=== PATIENT | male | born 1955 | race Caucasian/White ===

== ENCOUNTER 2018-12-13 12:03 | Inpatient (IN) | payer MEDICARE ==
[~2018-12-13] VITALS: Ht 177.8 cm; Wt 90.9 kg
[~2018-12-13 12:03] MED LIST: ALEVE220 MG PO; ASPIRIN325 MG PO; DILAUDID2 MG PO; GLUCOPHAGE500 MG PO; HYDROCODONE-APA1 TAB PO; LISINOPRIL10 MG PO; PRAVACHOL80 MG PO
--- NOTE | 2018-12-13 14:30 | NUR ---
PT AMBULATES TO FLOOR ESCORTED BY CT STAFF AND FAMILY. WRITTEN ORDERS PLACED. PT IS AAO X 4. PT DENIES PRESENCE OF SOB/DYSPNEA AT THIS TIME. PT DENIES PRESENCE OF PAIN/N/V. PIV TO RIGHT FA IS SL. O2 VIA ROOM AIR SAT @ 96%. VSS SEE ADMISSION VITALS. PT DENEIS FURTHER NEEDS.
--- NOTE | 2018-12-13 14:39 | NUR ---
DR ÁLVAREZ ON PHONE AND REQUESTS LAB TO BE DONE STAT. LAB CALLED AND NOTIFIED OF STAT LAB ORDERS.
[2018-12-13] MEDS ORDERED: CIPRO500 MG PO (14:44)
[2018-12-13] MEDS ORDERED: ALEVE220 MG PO (14:46)
[2018-12-13 15:00] VITALS: BP 139/76; BMI 28.7
--- NOTE | 2018-12-13 15:16 | NUR ---
ASSISTANT MEDIA PLANNER RAJWINDER NOTIFIED OF NEED FOR TELEMETRY. RAJWINDER CORRUGATOR HELPER TO NOTIFY NURSE WHEN MONITOR IS READY FOR PT USE.
--- NOTE | 2018-12-13 15:19 | NUR ---
PT NOTIFIED OF NEED FOR URINE SAMPLE. PT VERBALIZES UNDERSTANDING.
[2018-12-13 16:04] LABS: BASOPHILS 0.3 % (0-2); EOSINOPHILS 3.2 % (0-7); HEMATOCRIT 42.2 % (42.0-54.0); HEMOGLOBIN 14.4 g/dL (13.5-17.5); IMMATURE GRANULOCYTES 0.3 % (0-5); LYMPHOCYTES 14.3 % (15-50); MCH 30.3 pg (26.0-34.0); MCHC 34.1 g/dL (31.0-37.0); MCV 88.8 fL (80.0-100.0); MEAN PLATELET VOLUME 9.2 fL (7.4-10.4); MONOCYTES 10.9 % (2-11); PLATELET COUNT 133 10x3/uL (130-400); RBC 4.75 10x6/uL (4.20-6.10); WBC 9.2 10x3/uL (4.8-10.8)
[2018-12-13 16:27] LABS: APPEARANCE CLEAR (CLEAR); BILIRUBIN NEGATIVE (NEGATIVE); COLOR YELLOW (YELLOW); GLUCOSE NEGATIVE (NEGATIVE); KETONE SMALL mg/dL (NEGATIVE); NITRITE NEGATIVE (NEGATIVE); PROTEIN TRACE mg/dL (NEGATIVE); UROBILINOGEN NORMAL (NORMAL)
[2018-12-13 16:28] LABS: BACTERIA FEW /hpf (NEGATIVE); RED CELLS - URINE 0-5 /hpf (0-5); WHITE CELLS - URINE OCC /hpf (NEGATIVE)
[2018-12-13 16:45] LABS: ALBUMIN 3.6 g/dL (3.4-5.0); ALKALINE PHOSPHATASE 74 U/L (46-116); ALT (SGPT) 33 U/L (10-68); CALC OSMOLALITY 281 mosm/kg (275-300); CALCIUM 8.6 mg/dL (8.5-10.1); CHLORIDE - SERUM 102 mmol/L (98-107); CREATININE - SERUM 1.2 mg/dL (0.6-1.3); GLUCOSE 111 mg/dL (74-106); POTASSIUM - SERUM 4.3 mmol/L (3.5-5.1); PRO BNP 98 pg/mL (0-125); SODIUM 139 mmol/L (136-145); UREA NITROGEN 22 mg/dL (7-18); eGFR NON AFRICAN AMERICAN 64 mL/min (90-120)
[2018-12-13 16:47] LABS: TROPONIN-I < 0.017 ng/mL (0.000-0.060)
[2018-12-13 17:13] LABS: APTT 27.4 SECONDS (22.8-39.4); INR 1.11 (0.85-1.17); PROTIME 13.8 SECONDS (11.6-15.0)
[2018-12-13 20:00] VITALS: BP 117/64
--- NOTE | 2018-12-13 20:00 | NUR ---
ALERT SITTING UP IN BED VISITING WITH FAMILY, DENIES PAIN OR NEEDS AT THIS TIME, RESP UNLABORED, SEE SHIFT ASSESSMENT, CALL LIGHT IN REACH
[2018-12-14] VITALS (9 sets, daily range): BP systolic 120–132; BP diastolic 51–71
--- NOTE | 2018-12-14 09:00 | NUR ---
ALERT AND ORIENTED X4. LUNGS DIMINISHED TO LLQ ANTERIOR WITH DYSPNEA ON EXERTION. TELEMETRY INTACT.PEDAL PULSES NOTED W/O ANY EDEMA. ENCOURAGED TO USE CALL LIGHT FOR ASSIST.ENCOURAGED TO USE CALL LIGHT FOR ASSIST.
--- NOTE | 2018-12-14 13:29 | EC ---
PATIENT:PATRICE FRANK DATE OF SERVICE: 12/13/18 SEX: M MEDICAL RECORD: [id number] DATE OF : [birth year] LOCATION:[facility] AGE OF PATIENT: 63 ADMISSION DATE: 12/13/18 REFERRING PHYSICIAN: INTERPRETING PHYSICIAN: YVONNE HARKINS MD ECHOCARDIOGRAM REPORT ECHO CHARGES 4 ECHO COMPLETE Date: 12/13/18 CLINICAL DIAGNOSIS: BILATERAL PE'S, ASSESS FOR CLOTS, EF ECHOCARDIOGRAPHIC MEASUREMENTS (adult normal given) AC root (d.<3.7cm) 3.0 cm LV Septum d (<1.2 cm> 1.5 cm Valve Excursion 1.5 cm LV Septum (systole) 1.6 cm Left Atria (s.<4.0cm> 3.5 cm LVPW d(<1.2cm) 1.4 cm RV (d.<2.3cm) 3.6 cm LVPW (sytole) 1.9 cm LV diastole(<5.6CM) 5.0 cm MV E-F(>70mm/sec) cm LV systole 3.6 cm LVOT Diameter 1.8 cm MV exc.(>10mm) 1.8 cm Est.ejection fraction (50-75%) % DOPPLER: LVIT cm/sec A 84.0 cm/sec E 66.0 cm/sec LA cm/sec RVSP 19 mmHg LVOT 120 cm/sec AOP1/2T m/s Asc. Ao 156 cm/sec RVOT 75 cm/sec RA cm/sec PA 153 cm/sec AV Gradient Peak 9.73 mmHg AV Mean 5.51 mmHg AV Area 1.7 cm MV Gradient Peak 2.87 mmHg MV Mean 1.20 mmHg MV Area cm COMMENTS: Airline Pilot/First Officer: 2 ESTIVEN ORNELAS Linux System Administrator: 1 Dr. Harkins TAPE# PACS Pericardial Effusion N DATE OF SERVICE: PROCEDURE: Echocardiogram. FINDINGS: 1. Left ventricular chamber size is within normal limits. Left ventricular systolic function is normal at 55% to 60%. 2. Left atrium is within normal limits at 3.5 cm. Right atrium and right ventricular chamber sizes are as well within normal limits. 3. Valvular structures have normal structure and motion. ECHOCARDIOGRAM REPORT [id number] PATRICE FRANK 4. Doppler interrogation reveals no significant valvular insufficiency or stenosis. 5. No evidence of pericardial effusion or left ventricular thrombus. 6. No cardiac source of emboli. TRANSINT:[id number] Voice Confirmation ID: [id number] DOCUMENT ID: [id number] YVONNE HARKINS MD at 1329 CC: [id number] DICTATION DATE: 12/14/18 1103 REGIONAL DIRECTOR OF FINANCE: 12/14/18 1113 ADM IN [place] [id number] [place] [id number]
--- NOTE | 2018-12-14 19:55 | NUR ---
PT RESTING IN BED. ALERT AND ORIENTED. NO SIGNS OF DISTRESS. BREATHING EVEN AND UNLABORED. PT STATES NO PROBLEMS AT THIS TIME. IV SITE RT FA DRESSING CLEAN DRY AND INTACT. NO SIGNS OF INFECTION. LUNG SOUNDS CLEAR. BOWEL SOUNDS ACTIVE. TELE MONITOR ON 62 NORMAL SINUS. NO LOWER LEG SWELLING PRESENT. SKIN CLEAN DRY AND INTACT. WILL CONTINUE PLAN OF CARE. CALL LIGHT IN REACH. BED LOWERED AND LOCKED. FAMILY AT BEDSIDE.
--- NOTE | 2018-12-14 22:20 | NUR ---
PT COMPLAINNING OF CHEST PAIN 10 OUT OF 10. RAPID CALLED.
[2018-12-14 22:24] LABS: BASOPHILS 0.3 % (0-2); EOSINOPHILS 3.9 % (0-7); HEMATOCRIT 43.6 % (42.0-54.0); HEMOGLOBIN 14.9 g/dL (13.5-17.5); IMMATURE GRANULOCYTES 0.4 % (0-5); LYMPHOCYTES 18.9 % (15-50); MCH 29.9 pg (26.0-34.0); MCHC 34.2 g/dL (31.0-37.0); MCV 87.6 fL (80.0-100.0); MEAN PLATELET VOLUME 9.3 fL (7.4-10.4); MONOCYTES 10.8 % (2-11); NEUTROPHILS 65.7 % (40-80); RBC 4.98 10x6/uL (4.20-6.10); RDW 11.9 % (11.5-14.5); WBC 9.1 10x3/uL (4.8-10.8)
[2018-12-14 22:25] LABS: PLATELET COUNT 193 10x3/uL (130-400)
[2018-12-14 22:34] LABS: CALC OSMOLALITY 280 mosm/kg (275-300); CALCIUM 8.6 mg/dL (8.5-10.1); CARBON DIOXIDE 29.4 mmol/L (21.0-32.0); CHLORIDE - SERUM 102 mmol/L (98-107); CREATININE - SERUM 1.2 mg/dL (0.6-1.3); GLUCOSE 132 mg/dL (74-106); POTASSIUM - SERUM 4.1 mmol/L (3.5-5.1); SODIUM 137 mmol/L (136-145); UREA NITROGEN 26 mg/dL (7-18); eGFR NON AFRICAN AMERICAN 64 mL/min (90-120)
[2018-12-14 22:49] LABS: ALBUMIN 3.1 g/dL (3.4-5.0); ALKALINE PHOSPHATASE 71 U/L (46-116); ALT (SGPT) 36 U/L (10-68); BILIRUBIN - TOTAL 0.43 mg/dL (0.2-1.3); CKMB 0.3 U/L (0.0-3.6); CREATINE KINASE 40 UL (21-232); PROTEIN - SERUM 7.2 g/dL (6.4-8.2)
[2018-12-14 22:50] LABS: TROPONIN-I < 0.017 ng/mL (0.000-0.060)
--- NOTE | 2018-12-14 23:00 | NUR ---
PT STABLE. VITALS STABLE. CHEST PAIN HAS WHEN DOWN TO 3 OUT OF 10. EKG NORMAL. NO NEW ORDERS AT THIS TIME. WILL MONITOR CLOSELY. FAMILY AT BEDSIDE.
[2018-12-15] VITALS (8 sets, daily range): BP systolic 123–163; BP diastolic 64–74; Ht 177.8 cm; Wt 90.9 kg
--- NOTE | 2018-12-15 01:20 | NUR ---
I have reviewed this patient and I concur with the Shift Assessment completed by the Licensed Practical Nurse today this shift.
--- NOTE | 2018-12-15 09:35 | NUR ---
ALERT AND ORIENTED X4 WITH BREAST SOUNDS SLIGHTLY DIMINISHED TO BLQ ANTERIOR. NO PERIPHERAL EDEMA NOTED WITH CAP REFILL<3 SEC. DENEIS ANY CHEST PAIN OR DISCOMFORT AT THIS TIME. TELEMETRY INTACT AND ENCOURAGED TO USE CALL LIGHT FOR ASSISTANCE. FAMILY PRESENT AT THIS TIME.
[2018-12-15 11:09] LABS: ANTITHROMBIN III ACTIVITY 88 % (75-135); ANTITHROMBIN III ANTIGEN 82 % (72-124)
--- NOTE | 2018-12-15 14:28 | NUR ---
DR. GRIMALDO HERE WITH PATIENT HAVING RIGORS WITH TEMP 98.6 B/P 164/84 88 20. TYLENOL 650MG GIVEN PO GIVEN FOR RIGOR. NO OTHER CHANGES IN CONDITION WITH ORDERS NOTED.
--- NOTE | 2018-12-15 18:57 | NUR ---
PT HAD LARGE BM AND REFUSED SUPPOSITORY.
--- NOTE | 2018-12-15 19:15 | NUR ---
PATIENT ALERT AND ORIENTED WITH FAMILY AT BEDSIDE. AUSCULTATED BILATERAL UPPER AND LOWER LOBES. DIMINSHED ALL OVER WITH LIGHT CRACKLES NOTED IN THE UPPER RIGHT LOBE. PATIENT STATES HE IS NOT SHORT OR BREATH BUT THAT HE DOES FEEL RESISTANCE WHEN HE TAKES DEEP BREATHS. SPOKE WITH PATIENT ABOUT DR. GRIMALDO STATING NOT TO USE INCENTIVE SPIROMETER IN FEAR THAT IT MAY "BREAK SOMETHING LOOSE" INCENTIVE SPIROMETER REMOVED FROM BEDSIDE. PATIENT VERBALIZES UNDERSTANDING. PROVIDED EDUCATION ON LOVENOX TREATMENTS. PATIENT REPORTS SMALL "TENDER" AREA TO THE LEFT ANKLE. SLIGHT REDNESS NOTED AROUND AREA BUT NO SWELLING NOTED. PATIENT WEARING O2 AT 2 L VIA NASAL CANNULA. IV TO THE RIGHT FOREARM THAT IS SALINE LOCKED AT THIS TIME. DENIES PAIN. DENIES FURTHER DISCOMFORT. HAS CALL LIGHT IN REACH. BED IS LOCKED AND LOWERED TO LOWEST POSITION. CPOC.
--- NOTE | 2018-12-15 20:25 | NUR ---
FSBS 190. PATIENT STATES HE DOES NOT TAKE INSULIN AND NEVER HAS. STATES THEY JUST ATE PIZZA AND HE HAS DRANK JUICE TODAY TO MAKE BOWELS MOVE. PATIENT STATES HE IS UNCOMFORTABLE WITH INSULIN ADMINISTRATION. REFUSES INSULIN AT THIS TIME.
--- NOTE | 2018-12-15 21:00 | NUR ---
DAUGHTER IN ROOM AND CONVINCED PATIENT TO TAKE INSULIN. ADMINISTERED 4 UNITS PER ORDER. EDUCATED ON S/SX OF HYPOGLYCEMIA.
--- NOTE | 2018-12-15 22:35 | NUR ---
REASSESED FSBS 106
[2018-12-16 00:21] VITALS: BP 139/77
--- NOTE | 2018-12-16 01:16 | NUR ---
I have reviewed this patient and I concur with the Shift Assessment completed by the Licensed Practical Nurse today this shift.
[2018-12-16 04:45] VITALS: BP 136/73
[2018-12-16 06:35] LABS: CALC OSMOLALITY 280 mosm/kg (275-300); CARBON DIOXIDE 26.9 mmol/L (21.0-32.0); CHLORIDE - SERUM 102 mmol/L (98-107); GLUCOSE 95 mg/dL (74-106); POTASSIUM - SERUM 4.5 mmol/L (3.5-5.1); SODIUM 139 mmol/L (136-145); UREA NITROGEN 21 mg/dL (7-18); eGFR NON AFRICAN AMERICAN 80 mL/min (90-120)
[2018-12-16 06:42] LABS: HEMATOCRIT 44.4 % (42.0-54.0); MCH 29.9 pg (26.0-34.0); MCHC 33.8 g/dL (31.0-37.0); MCV 88.4 fL (80.0-100.0); MEAN PLATELET VOLUME 10.1 fL (7.4-10.4); PLATELET COUNT 225 10x3/uL (130-400); RBC 5.02 10x6/uL (4.20-6.10); WBC 6.9 10x3/uL (4.8-10.8)
--- NOTE | 2018-12-16 07:41 | NUR ---
ALERT AND ORIENTED. LUNGS DIMINISHED BILATERALLY THROUGHOUT. HEART SOUNDS S1 AND S2 HEARD IN ALL J[place]. TELEMETRY IN PLACE AT 74 SR. IV TO RFA PATENT WITHOUT REDNESS. SKIN INTACT WITHOUT REDNESS. O2 IN PLACE AT 2L. DENIES NEEDS. DENIES PAIN. BED LOW. CALL BRODY AND PERSONAL ITEMS IN REACH. WILL CONTINUE TO MONITOR.
[2018-12-16 08:15] LABS: BASOPHILS 2 % (0-2); EOSINOPHILS 12 % (0-7); LYMPHOCYTES 38 % (15-50); MONOCYTES 6 % (2-11); NEUTROPHILS 42 % (40-80); PLATELET ESTIMATE NORMAL
--- NOTE | 2018-12-16 08:17 | NUR ---
RASH NOTED TO BACK. WILL SPEAK WITH INTEGRATED CAMPAIGN MANAGER ABOUT.
[2018-12-16 08:25] VITALS: BP 134/69
--- NOTE | 2018-12-16 08:25 | NUR ---
DR GLOVER, TUBE BENDING MACHINE OPERATOR FOR DR ÁLVAREZ, PAGED.
--- NOTE | 2018-12-16 08:34 | NUR ---
SPOKE WITH DR GLOVER WHO STATES ORDER TRIAMCINALONE 0.1% CREAM BID FOR RASH TO BACK.
--- NOTE | 2018-12-16 09:42 | NUR ---
THIN LAYER OF KENALOG CREAM APPLIED TO ENTIRE BACK PER ORDER.
--- NOTE | 2018-12-16 09:48 | NUR ---
TELEMETRY SHOWS SINUS LESLEY 59.
--- NOTE | 2018-12-16 12:37 | NUR ---
SPOKE WITH DR GLOEVR WHO STATES OK FOR PT TO DC TODAY IF OK WITH PULMONARY. STATES LET KNOW AFTER PULMONARY MAKES ROUNDS.
[2018-12-16 12:38] VITALS: BP 117/70
--- NOTE | 2018-12-16 12:41 | NUR ---
RESTING IN BED. DENIES NEEDS. FAMILY AT BEDSIDE. WILL CONTINUE TO MONITOR.
--- NOTE | 2018-12-16 14:01 | NUR ---
SPOKE WITH DR MUÑIZ PER DR GLOVER'S REQUEST TO LET DR MUÑIZ KNOW THAT DR GLOVER IS OK WITH PATIENT DC TODAY IF DR MUÑIZ IS OK WITH DISCHARGE.
--- NOTE | 2018-12-16 14:07 | NUR ---
DR MUÑIZ SPEAKING WITH PATIENT AND FAMILY. STATES PATIENT SHOULD STAY ONE MORE NIGHT TO GET LOVENOX TODAY 12/16 AND START ELIQUIS TOMORROW PRIOR TO DISCHARGE. NOTIFIED PATIENT THAT WOULD BE ON BLOOD THINNER FOR AT LEAST SIX MONTHS. WILL NOTIFY DR GLOVER.
--- NOTE | 2018-12-16 14:12 | NUR ---
DR BELEN FAITH.
--- NOTE | 2018-12-16 14:20 | NUR ---
SPOKE WITH DR GLOVER ABOUT DR MUÑIZ'S PLAN. STATES OK TO DISCHARGE TOMORROW.
--- NOTE | 2018-12-16 14:25 | NUR ---
ADDITION TO PREVIOUS NOTES. OKAY TO GET UP TO GO TO BATHROOM PER DR MUÑIZ. NO INCENTIVE SPIROMETER PER DR MUÑIZ. PATIENT EDUCATION PROVIDED BY DR MUÑIZ TO "TAKE A DEEP BREATH ONCE IN A WHILE."
--- NOTE | 2018-12-16 15:33 | NUR ---
RESTING IN BED. DENIES NEEDS. WILL CONTINUE TO MONITOR.
[2018-12-16 16:09] VITALS: BP 128/72
--- NOTE | 2018-12-16 16:52 | NUR ---
RESTING IN BED. FAMILY AT BEDSIDE. DENIES NEEDS. CALL BRODY AND PERSONAL ITEMS IN REACH. WILL CONTINUE TO MONITOR.
--- NOTE | 2018-12-16 19:00 | NUR ---
PATIENT ALERT AND ORIENTED. AT BEDSIDE. PATIENT IN BED WITH HOB ELEVATED TO A 45 DEGREE ANGLE. PATIENT WEARING NASAL CANNULA WITH O2 @ 2L. RIGHT FORARM IV IS PATENT AND SALINE LOCKED AT THIS TIME. DENIES PAIN AT THIS TIME. RESPIRATORY THERAPIST IN ROOM AND DISCUSSED WALK TEST THAT WOULD OCCUR EITHER TONIGHT OR TOMORROW. ANSWERED PATIENT QUESTIONS. WEARING TELE MONITOR RUNNING 60 SINUS WITH PAC'S AT TIMES. STATES THAT HE IS STILL SHALLOW BREATHING. RESISTANCE TAKING DEEP BREATHS. CALL LIGHT IN REACH. CPOC.
[2018-12-16 20:00] VITALS: BP 133/71
[2018-12-17] VITALS: BP 135/69
--- NOTE | 2018-12-17 00:40 | NUR ---
PATIENT RESTING WITH NO DISTRESS NOTED AT THIS TIME. AND DAUGHTER IN ROOM SLEEPING. CPOC.
--- NOTE | 2018-12-17 02:34 | NUR ---
I have reviewed this patient and I concur with the Shift Assessment completed by the Licensed Practical Nurse today this shift.
[2018-12-17 04:00] VITALS: BP 118/71
--- NOTE | 2018-12-17 06:38 | NUR ---
PROVIDED TEACHING TO PATIENT ABOUT PE AND ELIQUIS. PT INSTRUCTIONS PRINTED
[2018-12-17] MEDS ORDERED: ELIQUIS5 MG PO (07:54)
[2018-12-17 08:36] VITALS: BP 121/68
--- NOTE | 2018-12-17 09:14 | NUR ---
PT UP IN ROOM FAMILY ASKED ABOUT WALK TEST, NO S/S OF DISTRESS, ADVISED WALK TEST SHOULD BE DONE BEFORE DC. CONTINUE WITH PLAN OF CARE
--- NOTE | 2018-12-17 09:25 | MORECARE ---
CASE MANAGEMENT DISCHARGE SUMMARY PATIENT: PATRICE FRANK UNIT: [id number] ADM DATE: 12/13/18 AGE: 63 : 53 SEX: M ROOM/BED: D.2225 AUTHOR: CINDY SALCEDO PHYSICIAN: REFERRING PHYSICIAN: ANH MURPHY MD DATE OF SERVICE: 12/17/18 Discharge Plan Patient Name: PATRICE FRANK Facility: [facility]:[place] : 1955 Planned Disposition: Home Anticipated Discharge Date: 12/17/18 Discharge Date: Expected LOS: 4 Initial Reviewer: [email or web address] Initial Review Date: 12/17/2018 Generated: 12/17/18 10:25 am Comments DCP- Discharge Planning Updated by [email or web address]: Gwendolyn Vieira on 12/17/18 8:[address] Patient Name: PATRICE FRANK Admission Status: Elective Accout number: [id number] Admission Date: 12-13-2018 : 1955 Admission Diagnosis: Attending: ANH MURPHY Current LOS: 4 Anticipated DC Date: 12-17-2018 Planned Disposition: Home Primary Insurance: MEDICARE A & B Discharge Planning Comments: CM met with patient to complete initial dc planning assessment. CM educated patient on the CM role and verbal consent given by patient to complete assessment. Patient lives at home with his . At discharge patient plans to return and feels this is a safe discharge. CM discussed availability of home health, rehab services, and medical equipment. Patient denied known discharge needs at this time. I have called RT for a walk test to check for home oxygen needs. CM will continue to follow and will assist as needed with dc plans/needs. Sports Coordinator: Gwendolyn Vieira DCPIA - Discharge Planning Initial Assessment Updated by [email or web address]: Gwendolyn Vieira on 12/17/18 9:22 am * Is the patient Alert and Oriented? Yes * How many steps to enter\exit or inside your home? 0/0 * PCP Dr. Murphy * [facility] [address] * Preadmission Environment Home with Family * ADLs Independent * Equipment None * List name and contact numbers for known caregivers / representatives who currently or will assist patient after discharge: Dalila Frank - - H [phone] - [phone] * Verbal permission to speak to the caregivers and representatives has been obtained from the patient. Yes * Community resources currently utilized None * Additional services required to return to the preadmission environment? No * Can the patient safely return to the preadmission environment? Yes * Has this patient been hospitalized within the prior 30 days at any hospital? No Coverage Notice Reviewer: [id number] Nadira Vieira Notice Issued Date-Time: 12/17/2018 9:12 Notice Type: IM Discharge Notice Notice Delivered To: Patient Relationship to Patient: Self Siding Applicator Name: Delivery Method: HAND - Hand Delivered Litzy Days: Prior Verbal Notification: Recipient Understood Notice: Yes Recipient Signature: Yes Med Rec Note Co-signed by Attending: Coverage Notice Comment: IMM explained, signed, given, copy placed in MR Patient Name: PATRICE FRANK Page [phone] at 0925 All edits/amendments must be made on the electronic document DICTATION DATE: 12/17/18924 RESIDENT DOCTOR: RIVERA 12/17/18924 RPT#: [id number] DC DATE: STATUS: ADM IN [facility] [address] [place] [address] END OF REPORT
--- NOTE | 2018-12-17 10:47 | NUR ---
UP IN CHAIR. PT IS WITHOUT DISTRESS.FAMILY AT BEDSIDE.CALL LIGHT IN REACH
--- NOTE | 2018-12-17 11:49 | MORECARE ---
CASE MANAGEMENT DISCHARGE SUMMARY PATIENT: PATRICE FRANK UNIT: [id number] ADM DATE: 12/13/18 AGE: 63 : 53 SEX: M ROOM/BED: D.2225 AUTHOR: CINDY SALCEDO PHYSICIAN: REFERRING PHYSICIAN: ANH MURPHY MD DATE OF SERVICE: 12/17/18 Discharge Plan Patient Name: PATRICE FRANK Facility: [facility]:[place] : 1955 Planned Disposition: Home Anticipated Discharge Date: 12/17/18 Discharge Date: Expected LOS: 4 Initial Reviewer: [email or web address] Initial Review Date: 12/17/2018 Generated: 12/17/18 12:49 pm Comments DCP- Discharge Planning Updated by [email or web address]: Gwendolyn Vieira on 12/17/18 8:[address] Patient Name: PATRICE FRANK Admission Status: Elective Accout number: [id number] Admission Date: 12-13-2018 : 1955 Admission Diagnosis: Attending: ANH MURPHY Current LOS: 4 Anticipated DC Date: 12-17-2018 Planned Disposition: Home Primary Insurance: MEDICARE A & B Discharge Planning Comments: CM met with patient to complete initial dc planning assessment. CM educated patient on the CM role and verbal consent given by patient to complete assessment. Patient lives at home with his . At discharge patient plans to return and feels this is a safe discharge. CM discussed availability of home health, rehab services, and medical equipment. Patient denied known discharge needs at this time. I have called RT for a walk test to check for home oxygen needs. CM will continue to follow and will assist as needed with dc plans/needs. Director Report: Gwendolyn Vieira DCPIA - Discharge Planning Initial Assessment Updated by [email or web address]: Gwendolyn Vieira on 12/17/18 9:22 am * Is the patient Alert and Oriented? Yes * How many steps to enter\exit or inside your home? 0/0 * PCP Dr. Murphy * [facility] [address] * Preadmission Environment Home with Family * ADLs Independent * Equipment None * List name and contact numbers for known caregivers / representatives who currently or will assist patient after discharge: Dalila Frank - - H [phone] - [phone] * Verbal permission to speak to the caregivers and representatives has been obtained from the patient. Yes * Community resources currently utilized None * Additional services required to return to the preadmission environment? No * Can the patient safely return to the preadmission environment? Yes * Has this patient been hospitalized within the prior 30 days at any hospital? No External Providers External Provider: Macy Simon Contact Date: Service Request Date: Service Type: Resolution: Reviewer: Comments: Coverage Notice Reviewer: [email or web address] Nadira Vieira Notice Issued Date-Time: 12/17/2018 9:12 Notice Type: IM Discharge Notice Notice Delivered To: Patient Relationship to Patient: Self Raw Shellfish Preparer Name: Delivery Method: HAND - Hand Delivered Litzy Days: Prior Verbal Notification: Recipient Understood Notice: Yes Recipient Signature: Yes Med Rec Note Co-signed by Attending: Coverage Notice Comment: IMM explained, signed, given, copy placed in MR Last DP export: 12/17/18 8:25 Patient Name: PATRICE FRANK Page [phone] at 1149 All edits/amendments must be made on the electronic document DICTATION DATE: 12/17/18 1149 CHIEF QUALITY OFFICER: RIVERA 12/17/18 1149 RPT#: [id number] DC DATE: STATUS: ADM IN [facility] [address] [place] [address] END OF REPORT
[2018-12-17 12:48] VITALS: BP 123/69
--- NOTE | 2018-12-17 13:16 | MORECARE ---
CASE MANAGEMENT DISCHARGE SUMMARY PATIENT: PATRICE FRANK UNIT: [id number] ADM DATE: 12/13/18 AGE: 63 : 53 SEX: M ROOM/BED: D.2225 AUTHOR: CINDY SALCEDO PHYSICIAN: REFERRING PHYSICIAN: ANH MURPHY MD DATE OF SERVICE: 12/17/18 Discharge Plan Patient Name: PATRICE FRANK Facility: [facility]:[place] : 1955 Planned Disposition: Home Anticipated Discharge Date: 12/17/18 Discharge Date: Expected LOS: 4 Initial Reviewer: [email or web address] Initial Review Date: 12/17/2018 Generated: 12/17/18 2:16 pm Comments DCP- Discharge Planning Updated by [id number]: Gwendolyn Vieira on 12/17/18 12:[address] Received a call from Annika with [facility]. Patient does not have a chronic qualifying diagnosis for oxygen. I spoke to both Dr. Prasad and Dr. Rodriguez and informed them of the oxygen saturation of 86% with exertion. Dr. Prasad and Dr. Rodriguez state ok to discharge. They both state that he does not have a chronic condition for oxygen. Dr. Prasad offers for patient to discharge and not have do anything to cause exertion. Patient may also private pay for oxygen which is 172 dollars a month. Patient and family present with this and they agree to private pay for oxygen. I did notify Annika that he will private pay. [facility] will bring a portable tank. Home today with oxygen from [facility]. DCP- Discharge Planning Updated by [id number]: Gwendolyn Vieira on 12/17/18 10:[address] Walk test qualifies patient for home oxygen with exertion. I faxed clinical to [facility] and spoke with Mike. I also spoke with Dr. Rodriguez's nurse and informed her that I would need to set up home oxygen if he qualifies, she informed Dr. Rodriguez. CM will continue to follow and assist with discharge planning/needs. DCP- Discharge Planning Updated by [id number]: Gwendolyn Vieira on 12/17/18 8:[address] Patient Name: PATRICE FRANK Admission Status: Elective Accout number: [id number] Admission Date: 12-13-2018 : 1955 Admission Diagnosis: Attending: ANH MURPHY Current LOS: 4 Anticipated DC Date: 12-17-2018 Planned Disposition: Home Primary Insurance: MEDICARE A & B Discharge Planning Comments: CM met with patient to complete initial dc planning assessment. CM educated patient on the CM role and verbal consent given by patient to complete assessment. Patient lives at home with his . At discharge patient plans to return and feels this is a safe discharge. CM discussed availability of home health, rehab services, and medical equipment. Patient denied known discharge needs at this time. I have called RT for a walk test to check for home oxygen needs. CM will continue to follow and will assist as needed with dc plans/needs. Specimen Technician: Gwendolyn Vieira DCPIA - Discharge Planning Initial Assessment Updated by [email or web address]: Gwendolyn Vieira on 12/17/18 9:22 am * Is the patient Alert and Oriented? Yes * How many steps to enter\exit or inside your home? 0/0 * PCP Dr. Murphy * Pharmacy [facility] * Preadmission Environment Home with Family * ADLs Independent * Equipment None * List name and contact numbers for known caregivers / representatives who currently or will assist patient after discharge: Dalila Frank - [facility] - [phone] - [phone] * Verbal permission to speak to the caregivers and representatives has been obtained from the patient. Yes * Community resources currently utilized None * Additional services required to return to the preadmission environment? No * Can the patient safely return to the preadmission environment? Yes * Has this patient been hospitalized within the prior 30 days at any hospital? No Coverage Notice Reviewer: [email or web address] Nadira Vieira Notice Issued Date-Time: 12/17/2018 9:12 Notice Type: IM Discharge Notice Notice Delivered To: Patient Relationship to Patient: Self Engagement Quality Consultant Name: Delivery Method: HAND - Hand Delivered Litzy Days: Prior Verbal Notification: Recipient Understood Notice: Yes Recipient Signature: Yes Med Rec Note Co-signed by Attending: Coverage Notice Comment: IMM explained, signed, given, copy placed in MR Reviewer: [id number] Nadira Vieira Notice Issued Date-Time: 12/17/2018 11:49 Notice Type: Patient Choice Letter Notice Delivered To: Patient Relationship to Patient: Self Engagement Quality Consultant Name: Delivery Method: HAND - Hand Delivered Litzy Days: Prior Verbal Notification: Recipient Understood Notice: Yes Recipient Signature: Yes Med Rec Note Co-signed by Attending: Coverage Notice Comment: RAHUL for Marlon Last DP export: 12/17/18 10:49 Patient Name: PATRICE FRANK Page [phone] at 1316 All edits/amendments must be made on the electronic document DICTATION DATE: 12/17/181314 FACILITY WORKER: RIVERA 12/17/181314 RPT#: [id number] DC DATE: STATUS: ADM IN [facility] [address] [place] [address] END OF REPORT
--- NOTE | 2018-12-17 14:00 | NUR ---
WENT OVER PT DC INSTRUCTIONS AND MEDS ALL QUESTIONS ANSWERED, NO OTHER NEEDS VOICED
--- NOTE | 2018-12-19 09:46 | MORECARE ---
CASE MANAGEMENT DISCHARGE SUMMARY PATIENT: PATRICE FRANK UNIT: [id number] ADM DATE: 12/13/18 AGE: 63 : 51 SEX: M ROOM/BED: D.2225 AUTHOR: CINDY SALCEDO PHYSICIAN: REFERRING PHYSICIAN: ANH MURPHY MD DATE OF SERVICE: 12/19/18 Discharge Plan Patient Name: PATRICE FRANK Facility: [facility]:[place] : 1955 Planned Disposition: Home Anticipated Discharge Date: 12/17/18 Discharge Date: 12/17/2018 Expected LOS: 4 Initial Reviewer: [email or web address] Initial Review Date: 12/17/2018 Generated: 12/19/18 10:46 am Comments DCP- Discharge Planning Updated by [email or web address]: Gwendolyn Vieira on 12/17/18 12:[address] Received a call from Annika with [facility] [place]. Patient does not have a chronic qualifying diagnosis for oxygen. I spoke to both Dr. Prasad and Dr. Rodriguez and informed them of the oxygen saturation of 86% with exertion. Dr. Prasad and Dr. Rodriguez state ok to discharge. They both state that he does not have a chronic condition for oxygen. Dr. Prasad offers for patient to discharge and not have do anything to cause exertion. Patient may also private pay for oxygen which is 172 dollars a month. Patient and family present with this and they agree to private pay for oxygen. I did notify Annika that he will private pay. [facility] will bring a portable tank. Home today with oxygen from [facility] [place]. DCP- Discharge Planning Updated by [email or web address]: Gwendolyn Vieira on 12/17/18 10:[address] Walk test qualifies patient for home oxygen with exertion. I faxed clinical to [facility] and spoke with Mike. I also spoke with Dr. Rodriguez's nurse and informed her that I would need to set up home oxygen if he qualifies, she informed Dr. Rodriguez. CM will continue to follow and assist with discharge planning/needs. DCP- Discharge Planning Updated by [email or web address]: Gwendolyn Vieira on 12/17/18 8:[address] Patient Name: PATRICE FRANK Admission Status: Elective Accout number: [id number] Admission Date: 12-13-2018 : 1955 Admission Diagnosis: Attending: ANH MURPHY Current LOS: 4 Anticipated DC Date: 12-17-2018 Planned Disposition: Home Primary Insurance: MEDICARE A & B Discharge Planning Comments: CM met with patient to complete initial dc planning assessment. CM educated patient on the CM role and verbal consent given by patient to complete assessment. Patient lives at home with his . At discharge patient plans to return and feels this is a safe discharge. CM discussed availability of home health, rehab services, and medical equipment. Patient denied known discharge needs at this time. I have called [facility] for a walk test to check for home oxygen needs. CM will continue to follow and will assist as needed with dc plans/needs. Haunted History Tour Guide: Gwendolyn Vieira DCPIA - Discharge Planning Initial Assessment Updated by [email or web address]: Gwendolyn Vieira on 12/17/18 9:22 am * Is the patient Alert and Oriented? Yes * How many steps to enter\exit or inside your home? 0/0 * PCP Dr. Murphy * Pharmacy [facility] * Preadmission Environment Home with Family * ADLs Independent * Equipment None * List name and contact numbers for known caregivers / representatives who currently or will assist patient after discharge: Dalila Frank - [facility] [phone] N - [phone] * Verbal permission to speak to the caregivers and representatives has been obtained from the patient. Yes * Community resources currently utilized None * Additional services required to return to the preadmission environment? No * Can the patient safely return to the preadmission environment? Yes * Has this patient been hospitalized within the prior 30 days at any hospital? No Coverage Notice Reviewer: [email or web address] Nadira Vieira Notice Issued Date-Time: 12/17/2018 9:12 Notice Type: IM Discharge Notice Notice Delivered To: Patient Relationship to Patient: Self Account Services Manager Name: Delivery Method: HAND - Hand Delivered Litzy Days: Prior Verbal Notification: Recipient Understood Notice: Yes Recipient Signature: Yes Med Rec Note Co-signed by Attending: Coverage Notice Comment: IMM explained, signed, given, copy placed in MR Reviewer: [id number] Nadira Vieira Notice Issued Date-Time: 12/17/2018 11:49 Notice Type: Patient Choice Letter Notice Delivered To: Patient Relationship to Patient: Self Account Services Manager Name: Delivery Method: HAND - Hand Delivered Litzy Days: Prior Verbal Notification: Recipient Understood Notice: Yes Recipient Signature: Yes Med Rec Note Co-signed by Attending: Coverage Notice Comment: RAHUL for Marlon Last DP export: 12/17/18 12:16 Patient Name: PATRICE FRANK Page [id number] at 0946 All edits/amendments must be made on the electronic document DICTATION DATE: 12/19/18945 LATHE SET UP PERSON: RIVERA 12/19/18945 RPT#: [id number] DC DATE:12/17/18 STATUS: DIS IN [facility] [address] [place] [address] END OF REPORT
--- NOTE | 2018-12-26 17:12 | HP ---
PATIENT: PATRICE FRANK MEDICAL RECORD: [id number] ACCOUNT: [id number] LOCATION:D.[facility] [address] : [birth year] ADMISSION DATE: 12/13/18 PCP: ANH ÁLVAREZ MD HISTORY AND PHYSICAL EXAMINATION REASON FOR ADMISSION: Left leg swelling. HISTORY OF PRESENT ILLNESS: The patient is a 63-year-old male who has been previously in good health except for type 2 diabetes mellitus and mild hypertension. He noticed about 5 or 6 days ago a slight cough. He said he took a deep breath, it felt like a burning in his chest. He also had some dysuria and trouble urinating and started on some Cipro 500 mg a day. Two days ago, he noticed some swelling in his left leg that progressed into his left upper thigh and was painful and came to the office this afternoon. On exam, he had positive Homans sign, he was referred directly to the hospital radiology department. Doppler showed evidence of left femoral and saphenous vein clot that appeared fairly mobile. He admitted actually to some chest pain at that point and a stat CTA was performed. Findings were that of bilateral pulmonary emboli with intraluminal clot in the right main pulmonary artery extending into the right upper lobe and right lower branches. Clot was also identified in the left descending pulmonary artery and the lower lobe branches. Atelectases in the lung base were noted as well. Therefore, admitted to the hospital on telemetry, [facility]. An echo has been ordered stat and pulmonary consult. He has no past history of clotting disorder or family history of thrombophilia. PAST MEDICAL HISTORY: Hyperlipidemia, type 2 diabetes mellitus, hypertension, gout, and osteoarthritis. PAST SURGICAL HISTORY: He has had rotator cuff repair, umbilical hernia repair, and tonsillectomy. SOCIAL HISTORY: He is , remote smoker, nondrinker. He is self-employed. CURRENT MEDICATIONS: Pravastatin 80 mg at bedtime, lisinopril 10 mg daily, metformin 500 mg with the evening meal. FAMILY HISTORY: Parents with his history of hypertension. No history hypercoagulable states. REVIEW OF SYSTEMS: GENERAL: He has been fatigued for the last 4-5 days. Denies fever. HEENT: No recent visual change, sinus congestion, or sore throat. RESPIRATORY: He has had respiratory discomfort in his chest. No cough or sputum production. CARDIAC: No palpitations, PND, orthopnea, exertional chest pain, claudication, has had edema in his left leg for the last 2 days. GASTROINTESTINAL: No nausea, vomiting, change in stools, blood per rectum. GENITOURINARY: Nocturia 2-3 times nightly with slow stream. No dysuria. ENDOCRINE: Denies polyuria, polydipsia, heat or cold intolerance. NEUROLOGIC: No history of stroke, TIA, or vascular headaches. INTEGUMENT: No rash or itching. PSYCHIATRIC: Denies depressed mood. PHYSICAL EXAMINATION: VITAL SIGNS: Temperature is 100 degrees Fahrenheit, pulse 64 and regular, HISTORY AND PHYSICAL [id number] PATRICE FRANK respirations are 18, blood pressure 139/76 with a sat of 96% on room air. GENERAL: The patient is alert and oriented, in no acute distress. HEENT: His eyes are clear. Oropharynx unremarkable. NECK: Supple. CHEST: Clear throughout. No wheeze or rales. HEART: Regular rate and rhythm without murmur. ABDOMEN: Soft, nontender. GENITOURINARY: Unremarkable. EXTREMITIES: He has 2+ edema in his left lower extremity and tender to palpation of the left femoral vein medially. Homans sign is positive. DIAGNOSTIC DATA: EKG shows sinus rhythm with a rate of 61. CTA was as mentioned above. Venous Doppler shows clot in the left common femoral vein and saphenous vein. LABORATORY DATA: His labs show a white count of 9000, H&H of 14 and 42.2 respectively. His platelet count is 133,000. Chemistry: BUN is 22, otherwise unremarkable. Blood sugar is 111, nonfasting. UA showed small ketones, 0-5 red cells, occasional white cells, few bacteria. INR is 1.11. Other coagulation studies are pending. ABGs with a pH of 7.455 on room air, pCO2 of 33, pO2 of 68. ASSESSMENT: DVT left lower extremity with bilateral pulmonary emboli, AODM, hyperlipidemia. PLAN: The patient admitted to the floor on continuous O2 sat monitoring and telemetry. Pulmonary consult will be obtained with Dr. Prasad. Lovenox has been initiated. A stat echo is pending. Disease process and treatment was explained to the patient and family. TRANSINT:[id number] Voice Confirmation ID: [id number] DOCUMENT ID: [id number] ANH ÁLVAREZ MD at 1712 CC: [id number] DICTATION DATE: 12/13/18 174 OPTICAL INSTRUMENT SPECIALIST: 12/13/181904 DIS IN 12/17/18 [facility] [address] [place] [address]
== END 2018-12-17 14:23 | disposition home or self-care (01) | DRG 299 ==
LOC: D.US 12:03 → D.SDCHOLD 13:17 → D.MS 13:17 → D.US 15:00 → D.SDCHOLD 12-14 14:20 → D.MS 12-14 14:20
PROVIDERS: Family Medicine; Internal Medicine Pulmonary Disease; ADMIT Family Medicine; ATTEND Family Medicine
DX: I82.412 Acute embolism and thrombosis of left femoral vein (principal); I26.99 Other pulmonary embolism without acute cor pulmonale; I82.812 Embolism and thrombosis of superficial veins of left lower extremity; E11.9 Type 2 diabetes mellitus without complications; I10 Essential (primary) hypertension; E78.5 Hyperlipidemia, unspecified; M19.90 Unspecified osteoarthritis, unspecified site